=== PATIENT | female | born 1960 | race Asian ===

== ENCOUNTER → 2018-06-10 | Outpatient (CLI) | payer OTHER ==
[2018-06-17 09:18] LABS: BRUSHITE 1.56 ratio (0.00-3.00); CALCIUM OXALATE 6.47 ratio (0.00-6.00); CALCIUM, URINE 145.8 mg/24 hr (100.0-300.0); CALCIUM, URINE 8.1 mg/dL (Not Estab.); CHLORIDE URINE 59 (110-250); CITRIC ACID (CITRATE) 103 mg/L (Not Estab.); CITRIC ACID(CITRATE) 185 mg/24 hr (320-1240); CREATININE, URINE 45.1 mg/dL (Not Estab.); CREATININE, URINE 811.8 mg/24 hr (800.0-1800.0); MAGNESIUM, URINE 3.4 mg/dL (Not Estab.); MONOSODIUM URATE 1.46 ratio (0.00-4.00); OSMOLALITY, URINE 304 (300-900); SODIUM, URINE 44 mmol/L (Not Estab.); SODIUM, URINE 79 (39-258); STRUVITE 0.02 ratio (0.00-1.00); URIC ACID 0.66 ratio (0.00-1.20); URINE VOLUME 1800 mL/24 hr (600-1600); URINE VOLUME (PRESERVATIVE) 1800 mL/24 hr (600-1600)
== END | disposition home or self-care (01) ==
LOC: LAB 08:00 → LAB SHORT 08:00 → LAB FUT 03-16 16:45
PROVIDERS: Physician Assistant
DX: N20.1 Calculus of ureter (principal)
CPT/HCPCS: 81003; 81050; 82131; 82140; 82340; 82436; 82507; 82570; 83735; 83935; 83945; 84105; 84133; 84300; 84392; 84560